=== PATIENT | male | born 1950 | race Caucasian/White ===

== ENCOUNTER → 2016-08-18 | Outpatient (CLI) | payer OTHER | LOC: ECHO 11:00 | DX: R00.2 Palpitations (principal) | CPT/HCPCS: ECHO; 93306 ==

== ENCOUNTER → 2016-09-15 | Outpatient (CLI) | payer OTHER | LOC: HEART 5 13:47 | DX: R00.0 Tachycardia, unspecified (principal); R00.2 Palpitations ==

== ENCOUNTER → 2021-11-19 | Outpatient (CLI) | payer MEDICARE, OTHER | LOC: HEART 5 15:07 | DX: R00.2 Palpitations (principal); I47.1 Supraventricular tachycardia ==